=== PATIENT | female | born 1950 | race Caucasian/White ===

== ENCOUNTER → 2019-11-08 | Outpatient (CLI) | payer OTHER ==
[~2019-11-08] MED LIST: AMBEREN; CALCIUM OYSTER500 MG; LEVOTHYROXIN0.025 MG; LOVENOX; NEURONTIN600 MG; NORCO 5-325 TA1 EACH; OXYIR 5 MG CAPSU5 M1; PRAVACHOL; VALACYCLOVIR1000 MG PO; VICODIN 5-3001 EACH PO; ZOLOFT 50 MG TA50 M1
== END ==
LOC: M.CT 11:06
PROVIDERS: ATTEND Nurse Practitioner Family
DX: Z13.6 Encounter for screening for cardiovascular disorders (principal)